=== PATIENT | female | born 1995 | race Caucasian/White ===

== ENCOUNTER 2021-09-05 21:31 | Emergency (ER) | payer OTHER ==
[~2021-09-05] VITALS: Ht 160 cm; Wt 90.7 kg
[2021-09-05] MEDS ORDERED: IRON325 M1 PO (21:38)
[2021-09-05] MEDS ORDERED: HYDROCODON-ACE1 EAC8 PO (22:32)
[2021-09-05 22:55] VITALS: BP 139/82
== END 2021-09-05 22:56 | disposition home or self-care (01) ==
LOC: M.ERS 21:31
DX: S09.90XA Unspecified injury of head, initial encounter (principal); J45.909 Unspecified asthma, uncomplicated; Z79.899 Other long term (current) drug therapy; Z88.8 Allergy status to other drugs, medicaments and biological substances; W22.09XA Striking against other stationary object, initial encounter; Y93.89 Activity, other specified; Y92.89 Other specified places as the place of occurrence of the external cause; Y99.0 Civilian activity done for income or pay